=== PATIENT | male | born 1955 | race Caucasian/White ===

== ENCOUNTER 2016-06-30 11:11 | Emergency (ER) | payer MEDICARE, MEDICAID ==
[~2016-06-30] VITALS: Ht 172.7 cm; Wt 123.2 kg
[~2016-06-30 11:11] MED LIST: AMOXICILLIN 8751 TAB PO; ANTIVERT 25MG25 MG PO; ASPIRIN 32325 MG/TAB PO; ASPIRIN 81M81 MG/TA2 PO; ASPIRIN E.C. 8181 MG PO; BACTRIM DS 8001 TAB PO; BETAPACE 120MG120 MG PO; BETAPACE 80MG80 MG; BETAPACE240 MG PO; CEFTIN500 MG PO; CEPHALEXIN500 M1 PO; COUMADIN 2MG2 MG/TAB PO; EFFIENT10 MG PO; ELIQUIS 5MG PO; FERROUS SULFATE65 MG PO; FLOMAX 0.40.4 MG/CAP PO; GLUCOPHAGE500 MG/TAB PO; HYGROTON 2525 MG/TAB; HYGROTON 2525 MG/TAB PO; IMDUR 30MG30 MG/TAB PO; IMDUR 60MG60 MG/TAB PO; LIPITOR 80MG80 MG PO; LOPRESSOR 550 MG/TAB PO; LORTAB 5/500 501 TAB PO; LOVENOX120 MG/0.8 SC; MACROBID 1100 MG/CAP PO; METOPROLOL25 MG PO; MS CONTIN 115 MG/TAB PO; MULTAQ400 MG PO; NITROGLYCERIN0.4 MG SL; NITROQUICK0.4 MG SL; NITROSTAT0.4 MG/TAB SL; NO HOME MEDICATIONS; NORCO 325 MG-51 TAB PO; NORVASC 10MG10 MG PO; NORVASC 5MG5 MG/TAB PO; NORVASC2.5 MG; PACERONE200 MG PO; PEPCID 20MG TAB20 MG PO; PERCOCET 5/321 UDTAB PO; PHENERGAN 25 TA25 MG PO; PHENERGAN25 MG RC; PLAVIX 75MG TAB75 MG PO; PRAVACHOL 40MG40 MG PO; PRINIVIL10 MG PO; PRINIVIL20 MG PO; PROSCAR 5MG5 MG PO; PROTONIX 40MG T40 MG PO; PYRIDIUM 100MG100 MG PO; TOPROL XL 50MG50 MG PO; TOPROL XL100 MG PO; TYLENOL 325MG325 MG PO; ZOCOR 10MG10 MG PO
[2016-06-30 11:14] VITALS: TEMP 97.6
[2016-06-30] MEDS ORDERED: ULTRAM 50MG TAB50 MG PO (11:43)
[2016-06-30] MEDS ORDERED: AMOXICILLIN 50500 MG PO (11:43)
[2016-06-30 11:47] VITALS: BP 126/73; PULSE 79
== END 2016-06-30 11:58 | disposition home or self-care (01) ==
LOC: COL.ER 11:11
DX: K08.89 Other specified disorders of teeth and supporting structures (principal); K03.81 Cracked tooth; I10 Essential (primary) hypertension; F17.210 Nicotine dependence, cigarettes, uncomplicated; Z95.5 Presence of coronary angioplasty implant and graft; I48.91 Unspecified atrial fibrillation; Z79.01 Long term (current) use of anticoagulants

== ENCOUNTER 2016-07-15 16:26 | Emergency (ER) | payer MEDICARE, MEDICAID ==
[~2016-07-15] VITALS: Ht 172.7 cm; Wt 122.3 kg
[~2016-07-15 16:26] MED LIST changes: +AMOXICILLIN 50500 MG PO; +ULTRAM 50MG TAB50 MG PO
[2016-07-15] MEDS ORDERED: PERCOCET 325 MG1 TA2 PO (17:17)
[2016-07-15] MEDS ORDERED: ULTRAM 50MG TAB50 MG PO (17:17)
[2016-07-15 17:25] VITALS: BP 131/71; PULSE 75; TEMP 98.3
== END 2016-07-15 17:25 | disposition home or self-care (01) ==
LOC: COL.ER 16:26
DX: K08.89 Other specified disorders of teeth and supporting structures (principal); I10 Essential (primary) hypertension; Z79.01 Long term (current) use of anticoagulants; F17.210 Nicotine dependence, cigarettes, uncomplicated; K08.409 Partial loss of teeth, unspecified cause, unspecified class

== ENCOUNTER → 2016-09-05 | Outpatient (CLI) | payer MEDICARE, MEDICAID ==
[~2016-09-05] MED LIST changes: +ISOSORBIDE MON120 MG PO; +NICODERM C21 MG/PATC TD; +PERCOCET 325 MG1 TA2 PO
== END ==
LOC: COL.RAD 15:28
DX: E21.2 Other hyperparathyroidism (principal)

== ENCOUNTER 2016-09-12 01:36 | Inpatient (IN) | payer MEDICARE, MEDICAID ==
[~2016-09-12] VITALS: Ht 172.7 cm; Wt 121.6 kg
[2016-09-12] VITALS (636 sets, daily range): BP systolic 97–144; BP diastolic 47–68; PULSE 57–69; TEMP 97.2–98; O2SAT 73–100
[~2016-09-12 01:36] MED LIST changes: -ISOSORBIDE MON120 MG PO; -NICODERM C21 MG/PATC TD
[2016-09-12 02:22] LABS: BASO % 0.4 % (0.0-2.0); EOS # 0.2 (0.0-0.7); EOS % 1.8 % (0-4.0); GRAN # 7.3 (1.4-6.5); GRAN % 67.3 % (42.2-75.2); LYMPH # 2.6 (1.2-3.4); LYMPH % 23.6 % (20.0-51.0); MEAN CELL VOLUME 88 fl (80.0-100.0); MEAN CORPUSCULAR HGB CONC 33 g/dl (33.0-37.0); MEAN PLATELET VOLUME 9.9 fl (7.4-10.4); MONO # 0.7 (0.1-0.6); MONO % 6.5 % (1.7-9.3); PLATELET COUNT 250 K/mm3 (130-400); RED BLOOD COUNT 4.06 M/mm3 (4.20-5.60); REDCELL DISTRIBUTION WIDTH-CV 14.9 % (11.5-14.5); WHITE BLOOD COUNT 10.9 K/mm3 (4.8-10.8)
[2016-09-12 02:23] LABS: HEMATOCRIT 35.7 % (42.0-52.0); HEMOGLOBIN 11.7 g/dl (13.5-18.0); MEAN CORPUSCULAR HEMOGLOBIN 29 pg (27.0-31.0)
[2016-09-12 02:27] LABS: INR 1.2 (0.8-3.0); PROTHROMBIN TIME 13.4 SECONDS (9.7-12.8)
[2016-09-12 02:29] LABS: ALBUMIN 3.8 gm/dL (3.5-5.0); ANION GAP 13 mmol/L (7-16); BILIRUBIN,TOTAL 0.6 mg/dL (0.0-1.0); BLOOD UREA NITROGEN 16 mg/dL (9-20); CALCIUM 10.8 mg/dL (8.4-10.2); CARBON DIOXIDE 25 mmol/L (22-30); CHLORIDE 99 mmol/L (98-107); CREATININE, serum 0.97 mg/dL (0.66-1.25); GLUCOSE 121 mg/dL (74-106); POTASSIUM 3.2 mmol/L (3.4-5.0); SODIUM 138 mmol/L (137-145); TOTAL PROTEIN 6.9 gm/dL (6.4-8.2)
[2016-09-12 02:30] LABS: ALANINE AMINOTRANSFERASE 26 U/L (21-72); ALKALINE PHOSPHATASE 94 U/L (50-136); LIPASE 233 U/L (23-300)
[2016-09-12 02:41] LABS: B-TYPE NATRIURETIC PEPTIDE 119 pg/mL (0-125); TROPONIN-I < 0.012 ng/mL (0.000-0.034)
[2016-09-12 10:11] LABS: PH 5 (5-8); SQUAMOUS EPITHELIAL None Seen /hpf; URINE APPEARANCE Clear; URINE BACTERIA None Seen /hpf; URINE BILIRUBIN Negative (NEGATIVE); URINE BLOOD 1+ (NEGATIVE); URINE COLOR Straw; URINE GLUCOSE Negative (NEGATIVE); URINE KETONE Negative (NEGATIVE); URINE RBC 0-2 /hpf; URINE UROBILINOGEN Negative (NEGATIVE); URINE WBC 0-2 /hpf
[2016-09-13] VITALS (332 sets, daily range): BP systolic 111–142; BP diastolic 67–79; PULSE 58–82; TEMP 97.5–98; O2SAT 78–100
[2016-09-13 05:09] LABS: BASO % 0.4 % (0.0-2.0); EOS # 0.2 (0.0-0.7); EOS % 2.1 % (0-4.0); GRAN # 5.5 (1.4-6.5); LYMPH # 1.7 (1.2-3.4); LYMPH % 21.4 % (20.0-51.0); MEAN CELL VOLUME 90 fl (80.0-100.0); MEAN CORPUSCULAR HGB CONC 32 g/dl (33.0-37.0); MEAN PLATELET VOLUME 10.1 fl (7.4-10.4); MONO # 0.5 (0.1-0.6); MONO % 6.8 % (1.7-9.3); PLATELET COUNT 225 K/mm3 (130-400); RED BLOOD COUNT 3.79 M/mm3 (4.20-5.60); REDCELL DISTRIBUTION WIDTH-CV 15.2 % (11.5-14.5)
[2016-09-13 05:24] LABS: HEMOGLOBIN 10.9 g/dl (13.5-18.0); MEAN CORPUSCULAR HEMOGLOBIN 29 pg (27.0-31.0)
[2016-09-13 05:31] LABS: ADJUSTED CALCIUM 10.8 mg/dL (8.4-10.2); ALBUMIN 3.2 gm/dL (3.5-5.0); BILIRUBIN,TOTAL 0.7 mg/dL (0.0-1.0); CALCIUM 10.2 mg/dL (8.4-10.2); CREATININE, serum 0.56 mg/dL (0.66-1.25); PHOSPHOROUS 2.3 mg/dL (2.5-4.5); POTASSIUM 3.5 mmol/L (3.4-5.0); TOTAL PROTEIN 6.1 gm/dL (6.4-8.2)
[2016-09-13] MEDS ORDERED: NICODERM C21 MG/PATC TD (13:22)
[2016-09-13] MEDS ORDERED: ISOSORBIDE MON120 MG PO (13:24)
== END 2016-09-13 14:00 | disposition home or self-care (01) | DRG 303 ==
LOC: COL.ER 01:36 → ICU 03:50
PROVIDERS: Emergency Medicine; Internal Medicine
PROC: 02HV33Z Insertion of Infusion Device into Superior Vena Cava, Percutaneous Approach (ICD-10-PCS; principal; 2016-09-12)
DX: I25.110 Atherosclerotic heart disease of native coronary artery with unstable angina pectoris (principal); I10 Essential (primary) hypertension; E11.9 Type 2 diabetes mellitus without complications; Z95.5 Presence of coronary angioplasty implant and graft; Z87.891 Personal history of nicotine dependence; E87.6 Hypokalemia; E83.52 Hypercalcemia; I48.0 Paroxysmal atrial fibrillation; Z79.01 Long term (current) use of anticoagulants; F10.10 Alcohol abuse, uncomplicated; Y90.6 Blood alcohol level of 120-199 mg/100 ml
CPT/HCPCS: 99223-AI; 99239; A9502; C1751; J1644; J2543; J2785; J7030; J7050; Q9967

== ENCOUNTER → 2016-09-26 | Outpatient (CLI) | payer MEDICARE, MEDICAID ==
[~2016-09-26] MED LIST changes: +ISOSORBIDE MON120 MG PO; +NICODERM C21 MG/PATC TD
== END ==
LOC: COL.RAD 07:03
DX: R94.6 Abnormal results of thyroid function studies (principal)
CPT/HCPCS: A9503

== ENCOUNTER 2017-10-03 01:52 | Emergency (ER) | payer MEDICARE, MEDICAID ==
[~2017-10-03] VITALS: Ht 175.3 cm; Wt 127.3 kg
[~2017-10-03 01:52] MED LIST changes: +INCRUSE EL62.5 MCG/A IH; +LASIX 80MG TABL80 MG PO; +LIPITOR 40MG TA40 MG PO; +ZESTRIL 10MG10 MG PO; +ZESTRIL2.5 MG PO
[2017-10-03 01:55] VITALS: BP 132/58; TEMP 97.8
[2017-10-03 02:55] VITALS: PULSE 71
== END 2017-10-03 02:50 | disposition home or self-care (01) ==
LOC: COL.ER 01:52
DX: I83.92 Asymptomatic varicose veins of left lower extremity (principal); E11.9 Type 2 diabetes mellitus without complications; I10 Essential (primary) hypertension; I48.91 Unspecified atrial fibrillation; I25.10 Atherosclerotic heart disease of native coronary artery without angina pectoris; F17.210 Nicotine dependence, cigarettes, uncomplicated; Z79.84 Long term (current) use of oral hypoglycemic drugs; Z79.82 Long term (current) use of aspirin

== ENCOUNTER 2018-05-27 23:40 | Emergency (ER) | payer MEDICARE ==
[~2018-05-27] VITALS: Ht 172.7 cm; Wt 124.5 kg
[2018-05-27 23:44] VITALS: BP 132/68; TEMP 97.8
[2018-05-27] MEDS ORDERED: NORCO 325 MG-51 TAB PO (23:56)
[2018-05-27] MEDS ORDERED: AMOXICILLIN 50500 MG PO (23:57)
[2018-05-28 00:57] VITALS: PULSE 71
== END 2018-05-28 00:58 | disposition home or self-care (01) ==
LOC: COL.ER 23:40
DX: K02.9 Dental caries, unspecified (principal); I25.10 Atherosclerotic heart disease of native coronary artery without angina pectoris; Z79.84 Long term (current) use of oral hypoglycemic drugs; Z79.82 Long term (current) use of aspirin; Z79.01 Long term (current) use of anticoagulants
CPT/HCPCS: J1170; J2270

== ENCOUNTER 2018-06-23 11:23 | Emergency (ER) | payer MEDICARE ==
[~2018-06-23] VITALS: Ht 172.7 cm; Wt 121.4 kg
[2018-06-23 11:24] VITALS: TEMP 97.8
[2018-06-23 12:40] VITALS: BP 92/52; PULSE 68
== END 2018-06-23 12:42 | disposition home or self-care (01) ==
LOC: COL.ER 11:23
DX: S86.912A Strain of unspecified muscle(s) and tendon(s) at lower leg level, left leg, initial encounter (principal); I10 Essential (primary) hypertension; E11.9 Type 2 diabetes mellitus without complications; I25.10 Atherosclerotic heart disease of native coronary artery without angina pectoris; Z88.0 Allergy status to penicillin; F17.210 Nicotine dependence, cigarettes, uncomplicated; X50.0XXA Overexertion from strenuous movement or load, initial encounter; Y92.410 Unspecified street and highway as the place of occurrence of the external cause; Z79.82 Long term (current) use of aspirin; Z79.84 Long term (current) use of oral hypoglycemic drugs

== ENCOUNTER 2018-07-25 07:25 | Emergency (ER) | payer MEDICARE ==
[~2018-07-25] VITALS: Ht 350.5 cm; Wt 121.4 kg
[2018-07-25 07:27] VITALS: BP 148/79; TEMP 98
[2018-07-25 08:34] VITALS: PULSE 82
== END 2018-07-25 08:34 | disposition home or self-care (01) ==
LOC: COL.ER 07:25
DX: S80.812A Abrasion, left lower leg, initial encounter (principal); I83.92 Asymptomatic varicose veins of left lower extremity; F17.210 Nicotine dependence, cigarettes, uncomplicated; Z79.82 Long term (current) use of aspirin; Z79.84 Long term (current) use of oral hypoglycemic drugs; Z79.01 Long term (current) use of anticoagulants; Y92.009 Unspecified place in unspecified non-institutional (private) residence as the place of occurrence of the external cause

== ENCOUNTER 2018-08-14 17:45 | Emergency (ER) | payer MEDICARE ==
[~2018-08-14] VITALS: Ht 172.7 cm; Wt 118.6 kg
[2018-08-14 17:48] VITALS: BP 141/62; TEMP 97.7
[2018-08-14 18:40] VITALS: PULSE 70
== END 2018-08-14 18:50 | disposition home or self-care (01) ==
LOC: COL.ER 17:45
DX: I83.892 Varicose veins of left lower extremity with other complications (principal); E11.9 Type 2 diabetes mellitus without complications; I10 Essential (primary) hypertension; E78.5 Hyperlipidemia, unspecified; I25.10 Atherosclerotic heart disease of native coronary artery without angina pectoris; F17.210 Nicotine dependence, cigarettes, uncomplicated; Z79.01 Long term (current) use of anticoagulants; Z79.84 Long term (current) use of oral hypoglycemic drugs; Z79.82 Long term (current) use of aspirin

== ENCOUNTER 2018-08-23 10:50 | Emergency (ER) | payer MEDICARE ==
[2018-08-23 10:55] VITALS: BP 111/53; PULSE 74; TEMP 97.8
== END 2018-08-23 11:10 | disposition home or self-care (01) ==
LOC: COL.ER 10:50
DX: S91.012D Laceration without foreign body, left ankle, subsequent encounter (principal); Z79.82 Long term (current) use of aspirin; Z79.84 Long term (current) use of oral hypoglycemic drugs

== ENCOUNTER 2018-10-18 23:53 | Emergency (ER) | payer MEDICARE ==
[~2018-10-18] VITALS: Ht 172.7 cm; Wt 126.4 kg
[2018-10-18 23:56] VITALS: TEMP 97.9
[2018-10-19 01:15] LABS: BASO % 0.4 % (0.0-2.0); EOS # 0.3 (0.0-0.7); GRAN # 7.6 (1.4-6.5); GRAN % 72.5 % (42.2-75.2); HEMOGLOBIN 11.3 g/dl (13.5-18.0); LYMPH # 1.8 (1.2-3.4); LYMPH % 17.5 % (20.0-51.0); MEAN CELL VOLUME 86 fl (80.0-100.0); MEAN CORPUSCULAR HEMOGLOBIN 26 pg (27.0-31.0); MEAN CORPUSCULAR HGB CONC 31 g/dl (33.0-37.0); MEAN PLATELET VOLUME 9.4 fl (7.4-10.4); MONO # 0.6 (0.1-0.6); MONO % 6.1 % (1.7-9.3); PLATELET COUNT 274 K/mm3 (130-400); RED BLOOD COUNT 4.28 M/mm3 (4.20-5.60); REDCELL DISTRIBUTION WIDTH-CV 18.1 % (11.5-14.5)
[2018-10-19 01:29] LABS: ALANINE AMINOTRANSFERASE 21 U/L (21-72); ALBUMIN 3.7 gm/dL (3.5-5.0); ALKALINE PHOSPHATASE 84 U/L (50-136); ANION GAP 7 mmol/L (7-16); AST,SGOT 20 U/L (15-37); BILIRUBIN,TOTAL 0.3 mg/dL (0.0-1.0); BLOOD UREA NITROGEN 16 mg/dL (9-20); CALCIUM 9.6 mg/dL (8.4-10.2); CARBON DIOXIDE 32 mmol/L (22-30); CHLORIDE 100 mmol/L (98-107); CREATININE, serum 0.61 (0.66-1.25); GLUCOSE 134 mg/dL (74-106); SODIUM 139 mmol/L (137-145); TOTAL PROTEIN 6.8 gm/dL (6.4-8.2)
[2018-10-19 01:42] LABS: TROPONIN-I < 0.012 ng/mL (0.000-0.035)
[2018-10-19 01:57] LABS: INR 1.2 (0.8-3.0); PROTHROMBIN TIME 13.5 SECONDS (9.7-12.8)
[2018-10-19 02:42] VITALS: BP 137/82; PULSE 68
[2018-10-19] MEDS ORDERED: LASIX 20MG TABL20 MG PO (02:43)
[2018-10-19] MEDS ORDERED: K-DUR 10 MEQ T10 MEQ PO (02:43)
== END 2018-10-19 02:53 | disposition home or self-care (01) ==
LOC: COL.ER 23:53
PROVIDERS: Emergency Medicine
DX: R60.9 Edema, unspecified (principal); I25.10 Atherosclerotic heart disease of native coronary artery without angina pectoris; I48.91 Unspecified atrial fibrillation; E78.5 Hyperlipidemia, unspecified; I10 Essential (primary) hypertension; Z95.5 Presence of coronary angioplasty implant and graft; F17.210 Nicotine dependence, cigarettes, uncomplicated; E87.6 Hypokalemia

== ENCOUNTER 2018-11-18 15:26 | Emergency (ER) | payer MEDICARE ==
[~2018-11-18] VITALS: Ht 172.7 cm; Wt 118.6 kg
[~2018-11-18 15:26] MED LIST changes: +K-DUR 10 MEQ T10 MEQ PO; +LASIX 20MG TABL20 MG PO
[2018-11-18 15:37] VITALS: BP 113/55; TEMP 98
[2018-11-18 17:01] LABS: BASO % 0.5 % (0.0-2.0); EOS # 0.3 (0.0-0.7); EOS % 3.9 % (0-4.0); GRAN # 5.7 (1.4-6.5); HEMOGLOBIN 11.4 g/dl (13.5-18.0); LYMPH # 1.8 (1.2-3.4); LYMPH % 20.9 % (20.0-51.0); MEAN CELL VOLUME 86 fl (80.0-100.0); MEAN CORPUSCULAR HEMOGLOBIN 26 pg (27.0-31.0); MEAN CORPUSCULAR HGB CONC 31 g/dl (33.0-37.0); MEAN PLATELET VOLUME 9.5 fl (7.4-10.4); MONO # 0.5 (0.1-0.6); MONO % 6.3 % (1.7-9.3); PLATELET COUNT 260 K/mm3 (130-400); RED BLOOD COUNT 4.33 M/mm3 (4.20-5.60); REDCELL DISTRIBUTION WIDTH-CV 16.8 % (11.5-14.5)
[2018-11-18 17:05] LABS: PROTHROMBIN TIME 11.9 SECONDS (9.7-12.8)
[2018-11-18 17:11] LABS: ALBUMIN 3.7 gm/dL (3.5-5.0); BILIRUBIN,TOTAL 0.3 mg/dL (0.0-1.0); CALCIUM 9.7 mg/dL (8.4-10.2); CREATININE, serum 0.66 (0.66-1.25); POTASSIUM 3.1 mmol/L (3.4-5.0); TOTAL PROTEIN 6.8 gm/dL (6.4-8.2)
[2018-11-18 17:13] LABS: D-DIMER < 200.00 ng/mLDDu (200-230)
[2018-11-18] MEDS ORDERED: ULTRAM 50MG TAB50 MG PO (17:40)
[2018-11-18 17:44] VITALS: PULSE 69
== END 2018-11-18 17:46 | disposition home or self-care (01) ==
LOC: COL.ER 15:26
PROVIDERS: Nurse Practitioner Primary Care
DX: I87.8 Other specified disorders of veins (principal); E11.9 Type 2 diabetes mellitus without complications; E87.6 Hypokalemia; I10 Essential (primary) hypertension; E78.5 Hyperlipidemia, unspecified; I25.10 Atherosclerotic heart disease of native coronary artery without angina pectoris; F17.210 Nicotine dependence, cigarettes, uncomplicated; Z90.49 Acquired absence of other specified parts of digestive tract; Z98.890 Other specified postprocedural states; Z79.84 Long term (current) use of oral hypoglycemic drugs; Z79.82 Long term (current) use of aspirin; Z95.5 Presence of coronary angioplasty implant and graft

== ENCOUNTER 2018-12-03 03:09 | Emergency (ER) | payer MEDICARE ==
[~2018-12-03] VITALS: Ht 172.7 cm; Wt 118.6 kg
[2018-12-03 03:14] VITALS: BP 126/69; PULSE 65; TEMP 97.5
[2018-12-03] MEDS ORDERED: LOTRIMIN15 GM TOP (03:47)
== END 2018-12-03 04:40 | disposition home or self-care (01) ==
LOC: COL.ER 03:09
DX: R21 Rash and other nonspecific skin eruption (principal); I48.91 Unspecified atrial fibrillation; Z79.01 Long term (current) use of anticoagulants; Z79.84 Long term (current) use of oral hypoglycemic drugs

== ENCOUNTER 2019-11-04 14:07 | Inpatient (IN) | payer MEDICARE, MEDICAID ==
[~2019-11-04] VITALS: Ht 172.8 cm; Wt 122.7 kg
[~2019-11-04 14:07] MED LIST changes: +LOTRIMIN15 GM TOP
[2019-11-04] MEDS ORDERED: PRINIVIL10 MG PO (14:23)
[2019-11-04] MEDS ORDERED: NITROSTAT0.4 MG/TAB SL (14:24)
[2019-11-04 14:36] LABS: BASO % 0.2 % (0.0-2.0); EOS # 0.2 (0.0-0.7); EOS % 1.9 % (0-4.0); GRAN # 7.5 (1.4-6.5); GRAN % 75.2 % (42.2-75.2); LYMPH # 1.6 (1.2-3.4); LYMPH % 15.9 % (20.0-51.0); MEAN CELL VOLUME 80 fl (80.0-100.0); MEAN CORPUSCULAR HGB CONC 29 g/dl (33.0-37.0); MEAN PLATELET VOLUME 9.5 fl (7.4-10.4); MONO # 0.6 (0.1-0.6); MONO % 6.4 % (1.7-9.3); PLATELET COUNT 318 K/mm3 (130-400); RED BLOOD COUNT 3.57 M/mm3 (4.20-5.60); REDCELL DISTRIBUTION WIDTH-CV 17.4 % (11.5-14.5)
[2019-11-04 14:37] LABS: ALANINE AMINOTRANSFERASE 18 U/L (4-49); ALKALINE PHOSPHATASE 91 U/L (50-136); ANION GAP 7 mmol/L (7-16); AST,SGOT 37 U/L (15-37); BILIRUBIN,TOTAL 0.5 mg/dL (0.0-1.0); BLOOD UREA NITROGEN 13 mg/dL (9-20); CALCIUM 9.2 mg/dL (8.4-10.2); CARBON DIOXIDE 34 mmol/L (22-30); CHLORIDE 96 mmol/L (98-107); CREATINE KINASE 150 U/L (55-170); CREATININE, serum 0.54 (0.66-1.25); GLUCOSE 146 mg/dL (74-106); LIPASE 179 U/L (23-300); POTASSIUM 3.3 mmol/L (3.4-5.0); SODIUM 136 mmol/L (137-145); TOTAL PROTEIN 7.1 gm/dL (6.4-8.2)
[2019-11-04 14:42] LABS: INR 1.3 (0.8-3.0); PROTHROMBIN TIME 14.9 SECONDS (9.7-12.8)
[2019-11-04 14:50] LABS: TROPONIN-I < 0.012 ng/mL (0.000-0.035)
[2019-11-04 14:54] LABS: HEMATOCRIT 28.5 % (42.0-52.0); HEMOGLOBIN 8.2 g/dl (13.5-18.0); MEAN CORPUSCULAR HEMOGLOBIN 23 pg (27.0-31.0)
[2019-11-04 16:59] VITALS: BP 104/51; PULSE 73; TEMP 98.5
[2019-11-04 19:06] VITALS: BP 111/49; PULSE 81; TEMP 98.3
[2019-11-05] VITALS (19 sets, daily range): BP systolic 97–128; BP diastolic 34–64; PULSE 71–94; TEMP 97.8–98.6
[2019-11-05 07:10] LABS: BASO % 0.4 % (0.0-2.0); EOS # 0.2 (0.0-0.7); EOS % 2.4 % (0-4.0); GRAN # 5.8 (1.4-6.5); GRAN % 75.9 % (42.2-75.2); LYMPH # 1.2 (1.2-3.4); LYMPH % 15.4 % (20.0-51.0); MEAN CELL VOLUME 80 fl (80.0-100.0); MEAN CORPUSCULAR HGB CONC 28 g/dl (33.0-37.0); MEAN PLATELET VOLUME 9.7 fl (7.4-10.4); MONO # 0.4 (0.1-0.6); MONO % 5.5 % (1.7-9.3); PLATELET COUNT 291 K/mm3 (130-400); RED BLOOD COUNT 3.22 M/mm3 (4.20-5.60); REDCELL DISTRIBUTION WIDTH-CV 17.2 % (11.5-14.5)
[2019-11-05 07:13] LABS: HEMATOCRIT 25.8 % (42.0-52.0); HEMOGLOBIN 7.2 g/dl (13.5-18.0); MEAN CORPUSCULAR HEMOGLOBIN 22 pg (27.0-31.0)
[2019-11-05 07:18] LABS: ANION GAP 6 mmol/L (7-16); BLOOD UREA NITROGEN 13 mg/dL (9-20); CALCIUM 8.6 mg/dL (8.4-10.2); CARBON DIOXIDE 35 mmol/L (22-30); CHLORIDE 97 mmol/L (98-107); CREATININE, serum 0.58 (0.66-1.25); GLUCOSE 116 mg/dL (74-106); POTASSIUM 3.6 mmol/L (3.4-5.0); SODIUM 137 mmol/L (137-145)
[2019-11-05 07:30] LABS: TROPONIN-I < 0.012 ng/mL (0.000-0.035)
[2019-11-05 07:45] LABS: IRON,SERUM 18 ug/dL (35-150)
[2019-11-05 07:54] LABS: TOTAL IRON BINDING CAPACITY 370 ug/dL (261-462)
[2019-11-05 18:17] LABS: HEMATOCRIT 30.7 % (42.0-52.0); HEMOGLOBIN 9.1 g/dl (13.5-18.0)
[2019-11-06 00:35] VITALS: BP 122/66; PULSE 84; TEMP 98.5
[2019-11-06 05:03] VITALS: BP 121/60; PULSE 75; TEMP 97.9
[2019-11-06 07:44] VITALS: BP 114/47; PULSE 79; TEMP 98
[2019-11-06 09:15] LABS: BASO % 0.4 % (0.0-2.0); EOS # 0.2 (0.0-0.7); EOS % 2.8 % (0-4.0); GRAN # 5.7 (1.4-6.5); GRAN % 74.9 % (42.2-75.2); LYMPH # 1.2 (1.2-3.4); LYMPH % 15.4 % (20.0-51.0); MEAN CELL VOLUME 80 fl (80.0-100.0); MEAN CORPUSCULAR HGB CONC 30 g/dl (33.0-37.0); MEAN PLATELET VOLUME 9.5 fl (7.4-10.4); MONO # 0.4 (0.1-0.6); MONO % 5.7 % (1.7-9.3); PLATELET COUNT 301 K/mm3 (130-400); RED BLOOD COUNT 3.58 M/mm3 (4.20-5.60); REDCELL DISTRIBUTION WIDTH-CV 17.2 % (11.5-14.5)
[2019-11-06 09:20] LABS: ALBUMIN 3.6 gm/dL (3.5-5.0); BILIRUBIN,TOTAL 0.5 mg/dL (0.0-1.0); CALCIUM 8.7 mg/dL (8.4-10.2); CREATININE, serum 0.46 (0.66-1.25); POTASSIUM 3.5 mmol/L (3.4-5.0); TOTAL PROTEIN 6.7 gm/dL (6.4-8.2)
[2019-11-06 09:25] LABS: HEMATOCRIT 28.6 % (42.0-52.0); HEMOGLOBIN 8.5 g/dl (13.5-18.0); MEAN CORPUSCULAR HEMOGLOBIN 24 pg (27.0-31.0)
[2019-11-06] MEDS ORDERED: FERRO-TIME325 MG PO (11:53)
== END 2019-11-06 13:40 | disposition home or self-care (01) | DRG 811 ==
LOC: COL.ER 14:07 → MEDICAL 15:45
PROVIDERS: Emergency Medicine; Physician Assistant; ADMIT Student in an Organized Health Care Education/Training Program
DX: D50.9 Iron deficiency anemia, unspecified (principal); I50.33 Acute on chronic diastolic (congestive) heart failure; Z68.41 Body mass index [BMI] 40.0-44.9, adult; R07.9 Chest pain, unspecified; I25.10 Atherosclerotic heart disease of native coronary artery without angina pectoris; Z95.5 Presence of coronary angioplasty implant and graft; I25.2 Old myocardial infarction; I11.0 Hypertensive heart disease with heart failure; I48.91 Unspecified atrial fibrillation; E78.5 Hyperlipidemia, unspecified; E11.9 Type 2 diabetes mellitus without complications; J44.9 Chronic obstructive pulmonary disease, unspecified; Z79.84 Long term (current) use of oral hypoglycemic drugs; Z79.82 Long term (current) use of aspirin; F17.210 Nicotine dependence, cigarettes, uncomplicated; Z88.0 Allergy status to penicillin; E66.9 Obesity, unspecified; Z79.01 Long term (current) use of anticoagulants
CPT/HCPCS: 99232-AI; 99233-AI; 99239; A9500; G0378; J1815; J1940; J2270; J2405; J2785; J7030; P9016

== ENCOUNTER 2019-11-11 00:06 | Emergency (ER) | payer MEDICARE ==
[~2019-11-11] VITALS: Ht 172.7 cm; Wt 122.7 kg
[~2019-11-11 00:06] MED LIST changes: +FERRO-TIME325 MG PO
[2019-11-11 00:21] VITALS: TEMP 98.1
[2019-11-11 00:42] LABS: BASO % 0.3 % (0.0-2.0); EOS # 0.3 (0.0-0.7); EOS % 2.5 % (0-4.0); GRAN # 7.4 (1.4-6.5); GRAN % 72.6 % (42.2-75.2); HEMATOCRIT 29.2 % (42.0-52.0); HEMOGLOBIN 8.2 g/dl (13.5-18.0); LYMPH # 1.8 (1.2-3.4); LYMPH % 17.9 % (20.0-51.0); MEAN CELL VOLUME 84 fl (80.0-100.0); MEAN CORPUSCULAR HEMOGLOBIN 24 pg (27.0-31.0); MEAN CORPUSCULAR HGB CONC 28 g/dl (33.0-37.0); MEAN PLATELET VOLUME 9.3 fl (7.4-10.4); MONO # 0.6 (0.1-0.6); MONO % 5.8 % (1.7-9.3); PLATELET COUNT 293 K/mm3 (130-400); RED BLOOD COUNT 3.48 M/mm3 (4.20-5.60); REDCELL DISTRIBUTION WIDTH-CV 19.4 % (11.5-14.5)
[2019-11-11 00:51] LABS: ALANINE AMINOTRANSFERASE 18 U/L (4-49); ALBUMIN 3.8 gm/dL (3.5-5.0); ALKALINE PHOSPHATASE 87 U/L (50-136); ANION GAP 8 mmol/L (7-16); AST,SGOT 26 U/L (15-37); BILIRUBIN,TOTAL 0.6 mg/dL (0.0-1.0); BLOOD UREA NITROGEN 10 mg/dL (9-20); CALCIUM 8.9 mg/dL (8.4-10.2); CARBON DIOXIDE 33 mmol/L (22-30); CHLORIDE 97 mmol/L (98-107); CREATININE, serum 0.57 (0.66-1.25); GLUCOSE 129 mg/dL (74-106); POTASSIUM 3.7 mmol/L (3.4-5.0); SODIUM 137 mmol/L (137-145)
[2019-11-11 01:05] LABS: TROPONIN-I < 0.012 ng/mL (0.000-0.035)
[2019-11-11 02:16] VITALS: BP 100/51; PULSE 88
== END 2019-11-11 02:16 | disposition left against medical advice (07) ==
LOC: COL.ER 00:06
PROVIDERS: Emergency Medicine
DX: R07.89 Other chest pain (principal); D64.9 Anemia, unspecified; J44.9 Chronic obstructive pulmonary disease, unspecified; I25.10 Atherosclerotic heart disease of native coronary artery without angina pectoris; I48.91 Unspecified atrial fibrillation; Z95.5 Presence of coronary angioplasty implant and graft; Z79.01 Long term (current) use of anticoagulants; Z79.84 Long term (current) use of oral hypoglycemic drugs
CPT/HCPCS: J7030

== ENCOUNTER → 2020-01-10 | Outpatient (CLI) | payer MEDICARE | LOC: COL.RAD 07:49 | DX: M25.571 Pain in right ankle and joints of right foot (principal) | CPT/HCPCS: J3301; Q9967 ==

== ENCOUNTER → 2020-02-07 | Outpatient (CLI) | payer MEDICARE, MEDICAID | LOC: COL.RAD 07:55 | DX: M25.572 Pain in left ankle and joints of left foot (principal) | CPT/HCPCS: J3301; Q9967 ==

== ENCOUNTER 2020-03-18 12:57 | Inpatient (IN) | payer MEDICARE, MEDICAID ==
[2020-03-18] VITALS (162 sets, daily range): BP systolic 106–144; BP diastolic 53–76; PULSE 66–80; TEMP 97.7–98.4; O2SAT 88–100
[~2020-03-18] VITALS: Ht 172.7 cm; Wt 118.2 kg
[2020-03-18 13:25] LABS: BASO % 0.4 % (0.0-2.0); EOS # 0.1 (0.0-0.7); EOS % 1.3 % (0-4.0); GRAN % 76.7 % (42.2-75.2); HEMOGLOBIN 10.1 g/dl (13.5-18.0); LYMPH # 1.4 (1.2-3.4); LYMPH % 14.8 % (20.0-51.0); MEAN CELL VOLUME 77 fl (80.0-100.0); MEAN CORPUSCULAR HEMOGLOBIN 22 pg (27.0-31.0); MEAN CORPUSCULAR HGB CONC 29 g/dl (33.0-37.0); MEAN PLATELET VOLUME 9.1 fl (7.4-10.4); MONO # 0.6 (0.1-0.6); MONO % 6.4 % (1.7-9.3); PLATELET COUNT 318 K/mm3 (130-400); RED BLOOD COUNT 4.51 M/mm3 (4.20-5.60); REDCELL DISTRIBUTION WIDTH-CV 19.2 % (11.5-14.5)
[2020-03-18 13:26] LABS: HEMATOCRIT 34.8 % (42.0-52.0)
[2020-03-18 13:36] LABS: INR 1.2 (0.8-3.0)
[2020-03-18 13:39] LABS: ALANINE AMINOTRANSFERASE 15 U/L (4-49); ALBUMIN 4.2 gm/dL (3.5-5.0); ALKALINE PHOSPHATASE 86 U/L (50-136); ANION GAP 7 mmol/L (7-16); AST,SGOT 20 U/L (15-37); BILIRUBIN,TOTAL 0.6 mg/dL (0.0-1.0); BLOOD UREA NITROGEN 10 mg/dL (9-20); CALCIUM 9.4 mg/dL (8.4-10.2); CARBON DIOXIDE 33 mmol/L (22-30); CHLORIDE 97 mmol/L (98-107); CREATININE, serum 0.58 (0.66-1.25); GLUCOSE 169 mg/dL (74-106); LIPASE 193 U/L (23-300); PARTIAL THROMBOPLASTIN TIME 34.9 SECONDS (26.0-37.0); POTASSIUM 3.3 mmol/L (3.4-5.0); SODIUM 137 mmol/L (137-145); TOTAL PROTEIN 7.1 gm/dL (6.4-8.2)
[2020-03-18] MEDS ORDERED: PROAIR HFA0.09 MG/AC IH (13:49)
[2020-03-18 13:56] LABS: TROPONIN-I < 0.012 ng/mL (0.000-0.035)
--- NOTE | 2020-03-18 16:47 | NUR ---
SEE BESSY FOR ALL MEDICATION ADMINISTRATION AND INTRA AND POST SEDATION ASSESSMENT
--- NOTE | 2020-03-18 18:40 | NUR ---
Arrives to ICU 4 via cart and transfer to bed with minimal assistance. Awake and alert, complains of chest pain 12/26. Usman RN with CL states Dr. Dean aware, patient states no worse than before the procedure. Will monitor for changes. TR band to right radial artery, CDI.
--- NOTE | 2020-03-18 19:15 | NUR ---
Bedside report received from SONIA Zayas. Cath site checked; clean, dry and intact with minimal discomfort. Patient reports 7/10 mid sternal chest pain which is described as "pressure". Patient reports this pain is unchanged from pre and post cath. SONIA Zayas reports that certified nurses aide is aware. Currently in Nitro at 10mcg/min. Call light left within reach.
--- NOTE | 2020-03-18 23:00 | NUR ---
Resting quietly in bed, and in no distress. Still reports chest pain which is unchanged from previous assessment. Radial site clean, dry and intact. Will continue to monitor.
[2020-03-19] VITALS (259 sets, daily range): BP systolic 120–146; BP diastolic 49–69; PULSE 72–79; TEMP 98–98.5; O2SAT 67–100
[2020-03-19 05:35] LABS: BASO % 0.2 % (0.0-2.0); EOS # 0.1 (0.0-0.7); EOS % 1.3 % (0-4.0); GRAN # 7.8 (1.4-6.5); GRAN % 79.2 % (42.2-75.2); LYMPH # 1.3 (1.2-3.4); LYMPH % 12.6 % (20.0-51.0); MEAN CELL VOLUME 77 fl (80.0-100.0); MEAN CORPUSCULAR HEMOGLOBIN 23 pg (27.0-31.0); MEAN CORPUSCULAR HGB CONC 29 g/dl (33.0-37.0); MEAN PLATELET VOLUME 9.4 fl (7.4-10.4); MONO # 0.6 (0.1-0.6); MONO % 6.3 % (1.7-9.3); PLATELET COUNT 297 K/mm3 (130-400); RED BLOOD COUNT 4.45 M/mm3 (4.20-5.60)
[2020-03-19 05:40] LABS: HEMATOCRIT 34.4 % (42.0-52.0)
[2020-03-19 05:50] LABS: CALCIUM 8.9 mg/dL (8.4-10.2); CREATININE, serum 0.5 (0.66-1.25); MAGNESIUM 1.5 mg/dL (1.6-2.3); POTASSIUM 3.5 mmol/L (3.4-5.0)
[2020-03-19 06:05] LABS: TROPONIN-I 0.22 ng/mL (0.000-0.035)
--- NOTE | 2020-03-19 06:27 | NUR ---
Oxygen de-saturated to low 80's while sleeping. Placed on 2L NC. 02 immediately back up to mid 90's.
--- NOTE | 2020-03-19 09:24 | NUR ---
Sales And Marketing Agent met with the patient to complete intake. The patient lives in [place] with his life partner/DPOA-HC, Urmila Bond and will return home at discharge. The patient has a walking stick that he uses sometimes. The patient is independent. The patient's PCP is Dr. Galdamez and patient receives medications from [facility] pharmacy. The patient had advanced directives in the EMR. Urmila will provide transportation home. There are no additional needs.
[2020-03-19] MEDS ORDERED: PLAVIX 75MG TAB75 MG PO (10:39)
[2020-03-19] MEDS ORDERED: LIPITOR 80MG80 MG PO (10:40)
[2020-03-19] MEDS ORDERED: ASPIRIN 81M81 MG/TA2 PO (10:42)
--- NOTE | 2020-03-19 10:43 | NUR ---
Casing Soaker attended clinical rounds with the team. The patient is to discharge home today, 03/19. There are no additional needs.
--- NOTE | 2020-03-19 14:05 | NUR ---
DISCHARGE PAPERWORK AND FOLLOW UP APPTS REVIEWED. PT VERBALIZED UNDERSTANDING. HE IS GIVEN RESTRICTIONS FOR HIS RADIAL SITE FROM HEART CATH. HE IS ASSISTED OUT TO ED ENTRANCE WHERE HIS GIRLFRIEND PICKS HIM UP.
--- NOTE | 2020-03-19 14:32 | NUR ---
Initial visit; Patient thanked Forest Economics Professor for looking in on him and keeping him in cooler worker's prayers.
== END 2020-03-19 14:06 | disposition home or self-care (01) | DRG 247 ==
LOC: COL.ER 12:57 → ICU 14:27
PROVIDERS: Emergency Medicine; ADMIT Internal Medicine
PROC: 0271356 Dilation of Coronary Artery, Two Arteries, Bifurcation, with Two Drug-eluting Intraluminal Devices, Percutaneous Approach (ICD-10-PCS; principal; 2020-03-19)
PROC: 02C03ZZ Extirpation of Matter from Coronary Artery, One Artery, Percutaneous Approach (ICD-10-PCS; 2020-03-19)
PROC: B2101ZZ Fluoroscopy of Single Coronary Artery using Low Osmolar Contrast (ICD-10-PCS; 2020-03-19)
PROC: 4A023N8 Measurement of Cardiac Sampling and Pressure, Bilateral, Percutaneous Approach (ICD-10-PCS; 2020-03-19)
PROC: B2111ZZ Fluoroscopy of Multiple Coronary Arteries using Low Osmolar Contrast (ICD-10-PCS; 2020-03-19)
DX: I25.110 Atherosclerotic heart disease of native coronary artery with unstable angina pectoris (principal); E11.9 Type 2 diabetes mellitus without complications; E78.5 Hyperlipidemia, unspecified; I48.91 Unspecified atrial fibrillation; Z79.01 Long term (current) use of anticoagulants; I10 Essential (primary) hypertension; F17.210 Nicotine dependence, cigarettes, uncomplicated; Z87.442 Personal history of urinary calculi; Z79.84 Long term (current) use of oral hypoglycemic drugs
CPT/HCPCS: 99222-AI; 99239; C9600; C9601; J0583; J1644; J2250; J3010; Q9967

== ENCOUNTER 2020-05-16 14:55 | Emergency (ER) | payer MEDICARE, MEDICAID ==
[~2020-05-16] VITALS: Ht 172.7 cm; Wt 130.9 kg
[~2020-05-16 14:55] MED LIST changes: +PROAIR HFA0.09 MG/AC IH
[2020-05-16 15:12] VITALS: TEMP 98.1
[2020-05-16 15:37] LABS: BASO % 0.3 % (0.0-2.0); EOS # 0.4 (0.0-0.7); GRAN # 6.4 (1.4-6.5); GRAN % 71.2 % (42.2-75.2); LYMPH # 1.6 (1.2-3.4); LYMPH % 18.2 % (20.0-51.0); MEAN CELL VOLUME 77 fl (80.0-100.0); MEAN CORPUSCULAR HGB CONC 28 g/dl (33.0-37.0); MEAN PLATELET VOLUME 9.6 fl (7.4-10.4); MONO # 0.5 (0.1-0.6); MONO % 5.9 % (1.7-9.3); PLATELET COUNT 343 K/mm3 (130-400); RED BLOOD COUNT 4.06 M/mm3 (4.20-5.60); REDCELL DISTRIBUTION WIDTH-CV 18.2 % (11.5-14.5)
[2020-05-16 15:38] LABS: HEMATOCRIT 31.2 % (42.0-52.0); HEMOGLOBIN 8.8 g/dl (13.5-18.0); MEAN CORPUSCULAR HEMOGLOBIN 22 pg (27.0-31.0)
[2020-05-16 15:52] LABS: ALANINE AMINOTRANSFERASE 17 U/L (4-49); ALKALINE PHOSPHATASE 102 U/L (50-136); ANION GAP 9 mmol/L (7-16); AST,SGOT 25 U/L (15-37); BILIRUBIN,TOTAL 0.5 mg/dL (0.0-1.0); BLOOD UREA NITROGEN 10 mg/dL (9-20); C-REACTIVE PROTEIN 1.6 mg/dL (0.0-0.9); CALCIUM 8.7 mg/dL (8.4-10.2); CARBON DIOXIDE 34 mmol/L (22-30); CHLORIDE 94 mmol/L (98-107); CREATININE, serum 0.56 (0.66-1.25); GLUCOSE 260 mg/dL (74-106); POTASSIUM 3.4 mmol/L (3.4-5.0); SODIUM 137 mmol/L (137-145); TOTAL PROTEIN 6.9 gm/dL (6.4-8.2)
[2020-05-16 16:01] LABS: TROPONIN-I < 0.012 ng/mL (0.000-0.035)
[2020-05-16] MEDS ORDERED: K-DUR20 MEQ PO (17:22)
[2020-05-16 17:26] VITALS: BP 151/86; PULSE 81
[2020-05-16] MEDS ORDERED: LASIX 40MG TABL40 MG PO (17:36)
== END 2020-05-16 17:30 | disposition home or self-care (01) ==
LOC: COL.ER 14:55
PROVIDERS: Nurse Practitioner
DX: R60.0 Localized edema (principal); J44.9 Chronic obstructive pulmonary disease, unspecified; E66.9 Obesity, unspecified; F17.210 Nicotine dependence, cigarettes, uncomplicated; I48.91 Unspecified atrial fibrillation; Z95.5 Presence of coronary angioplasty implant and graft; Z88.0 Allergy status to penicillin; Z79.02 Long term (current) use of antithrombotics/antiplatelets; Z79.82 Long term (current) use of aspirin; Z79.01 Long term (current) use of anticoagulants; Z79.84 Long term (current) use of oral hypoglycemic drugs
CPT/HCPCS: J1940

== ENCOUNTER 2020-08-15 07:04 | Emergency (ER) | payer MEDICARE, MEDICAID ==
[~2020-08-15] VITALS: Ht 172.7 cm; Wt 118.6 kg
[~2020-08-15 07:04] MED LIST changes: +BETAPACEAF120 PO; +K-DUR20 MEQ PO; +LASIX 40MG TABL40 MG PO
[2020-08-15 07:32] LABS: BASO % 0.2 % (0.0-2.0); EOS # 0.2 (0.0-0.7); EOS % 2.1 % (0-4.0); GRAN # 6.6 (1.4-6.5); GRAN % 75.2 % (42.2-75.2); LYMPH # 1.4 (1.2-3.4); LYMPH % 16.3 % (20.0-51.0); MEAN CELL VOLUME 80 fl (80.0-100.0); MEAN CORPUSCULAR HGB CONC 28 g/dl (33.0-37.0); MEAN PLATELET VOLUME 9.3 fl (7.4-10.4); MONO # 0.5 (0.1-0.6); MONO % 5.9 % (1.7-9.3); PLATELET COUNT 329 K/mm3 (130-400); RED BLOOD COUNT 4.08 M/mm3 (4.20-5.60)
[2020-08-15 07:35] LABS: HEMATOCRIT 32.7 % (42.0-52.0); HEMOGLOBIN 9.3 g/dl (13.5-18.0); MEAN CORPUSCULAR HEMOGLOBIN 23 pg (27.0-31.0)
[2020-08-15 07:38] LABS: INR 1.2 (0.8-3.0); PROTHROMBIN TIME 13.8 SECONDS (9.7-12.8)
[2020-08-15 07:41] LABS: PARTIAL THROMBOPLASTIN TIME 35.8 SECONDS (26.0-37.0)
[2020-08-15 07:42] LABS: ALBUMIN 3.8 gm/dL (3.5-5.0); BILIRUBIN,TOTAL 0.5 mg/dL (0.0-1.0); CALCIUM 8.8 mg/dL (8.4-10.2); CREATININE, serum 0.5 (0.66-1.25); TOTAL PROTEIN 6.9 gm/dL (6.4-8.2)
[2020-08-15 07:48] LABS: POTASSIUM 2.9 mmol/L (3.4-5.0)
[2020-08-15 07:56] LABS: TROPONIN-I 0.052 ng/mL (0.000-0.035)
[2020-08-15 09:30] VITALS: TEMP 98.1
[2020-08-15 10:10] VITALS: BP 102/72; PULSE 78
[2020-12-15] MEDS ORDERED: LASIX 20MG TABL20 MG PO (14:29)
[2020-12-15] MEDS ORDERED: ULTRAM 50MG TAB50 MG PO (14:30)
[2020-12-15] MEDS ORDERED: PLAVIX 75MG TAB75 MG PO (14:30)
== END 2020-08-15 10:15 | disposition short-term general hospital (02) ==
LOC: COL.ER 07:04
PROVIDERS: Family Medicine
DX: R07.89 Other chest pain (principal); D64.9 Anemia, unspecified; R06.02 Shortness of breath; I25.10 Atherosclerotic heart disease of native coronary artery without angina pectoris; I48.91 Unspecified atrial fibrillation; I10 Essential (primary) hypertension; E11.9 Type 2 diabetes mellitus without complications; Z87.442 Personal history of urinary calculi; Z95.9 Presence of cardiac and vascular implant and graft, unspecified; Z79.02 Long term (current) use of antithrombotics/antiplatelets; Z79.82 Long term (current) use of aspirin; Z79.84 Long term (current) use of oral hypoglycemic drugs; Z79.01 Long term (current) use of anticoagulants; Z20.822 Contact with and (suspected) exposure to COVID-19
CPT/HCPCS: J3480

== ENCOUNTER 2020-08-24 04:31 | Emergency (ER) | payer MEDICARE, MEDICAID ==
[2020-08-24] VITALS (10 sets, daily range): BP systolic 102–136; BP diastolic 56–86; PULSE 64–76; TEMP 98–98.6
[~2020-08-24] VITALS: Ht 172.7 cm; Wt 123.2 kg
[2020-08-24 05:00] LABS: BASO % 0.4 % (0.0-2.0); EOS # 0.2 (0.0-0.7); EOS % 2.5 % (0-4.0); LYMPH # 1.6 (1.2-3.4); LYMPH % 19.4 % (20.0-51.0); MEAN CELL VOLUME 78 fl (80.0-100.0); MEAN CORPUSCULAR HGB CONC 30 g/dl (33.0-37.0); MEAN PLATELET VOLUME 9.1 fl (7.4-10.4); MONO # 0.6 (0.1-0.6); MONO % 6.5 % (1.7-9.3); PLATELET COUNT 282 K/mm3 (130-400); RED BLOOD COUNT 3.86 M/mm3 (4.20-5.60); REDCELL DISTRIBUTION WIDTH-CV 19.7 % (11.5-14.5)
[2020-08-24 05:02] LABS: HEMATOCRIT 30.2 % (42.0-52.0); HEMOGLOBIN 8.9 g/dl (13.5-18.0); MEAN CORPUSCULAR HEMOGLOBIN 23 pg (27.0-31.0)
[2020-08-24 05:05] LABS: INR 1.3 (0.8-3.0); PROTHROMBIN TIME 14.9 SECONDS (9.7-12.8)
[2020-08-24 05:09] LABS: BILIRUBIN,TOTAL 0.6 mg/dL (0.0-1.0); CALCIUM 8.9 mg/dL (8.4-10.2); CREATININE, serum 0.57 (0.66-1.25); POTASSIUM 3.4 mmol/L (3.4-5.0)
[2020-08-24 05:21] LABS: TROPONIN-I 0.012 ng/mL (0.000-0.035)
[2020-08-24] MEDS ORDERED: NORVASC 5MG5 MG/TAB PO (14:29)
[2020-12-15] MEDS ORDERED: LASIX 20MG TABL20 MG PO (14:29)
[2020-12-15] MEDS ORDERED: ULTRAM 50MG TAB50 MG PO (14:30)
[2020-12-15] MEDS ORDERED: PLAVIX 75MG TAB75 MG PO (14:30)
== END 2020-08-24 16:00 | disposition home or self-care (01) ==
LOC: COL.ER 04:31
PROVIDERS: Emergency Medicine
DX: R07.9 Chest pain, unspecified (principal); R06.02 Shortness of breath; I25.10 Atherosclerotic heart disease of native coronary artery without angina pectoris; I48.91 Unspecified atrial fibrillation; I10 Essential (primary) hypertension; E78.5 Hyperlipidemia, unspecified; E11.9 Type 2 diabetes mellitus without complications; Z87.442 Personal history of urinary calculi; Z79.01 Long term (current) use of anticoagulants; Z79.02 Long term (current) use of antithrombotics/antiplatelets; Z88.0 Allergy status to penicillin; Z79.82 Long term (current) use of aspirin; Z79.84 Long term (current) use of oral hypoglycemic drugs; Z20.822 Contact with and (suspected) exposure to COVID-19
CPT/HCPCS: C1764; J2250; J2270; J3010; J7030; P9016

== ENCOUNTER 2020-09-24 00:30 | Inpatient (IN) | payer MEDICARE, MEDICAID ==
[2020-09-24] VITALS (74 sets, daily range): BP systolic 105–143; BP diastolic 46–83; PULSE 62–85; TEMP 97–99; O2SAT 93–100
[~2020-09-24] VITALS: Ht 172.7 cm; Wt 122.7 kg
[2020-09-24] MEDS ORDERED: TOPROL XL 50MG50 MG PO (04:52)
[2020-09-24] MEDS ORDERED: B-121000 MCG PO (04:53)
[2020-09-24] MEDS ORDERED: FERRO-TIME325 MG PO (04:53)
[2020-09-24] MEDS ORDERED: RANEXA 500MG T500 MG PO (05:01)
[2020-09-24] MEDS ORDERED: LASIX 20MG TABL20 MG PO (05:01)
[2020-09-24 05:46] LABS: ALBUMIN 3.7 gm/dL (3.5-5.0); BILIRUBIN,TOTAL 0.3 mg/dL (0.0-1.0); CALCIUM 8.4 mg/dL (8.4-10.2); COLLECTION METHOD CLEAN CATCH; CREATININE, serum 0.51 (0.66-1.25); POTASSIUM 3.6 mmol/L (3.4-5.0); TROPONIN-I 0.115 ng/mL (0.000-0.035)
[2020-09-24 05:47] LABS: BASO % 0.4 % (0.0-2.0); EOS % 2.8 % (0-4.0); GRAN % 67.4 % (42.2-75.2); HEMATOCRIT 29.4 % (42.0-52.0); HEMOGLOBIN 8.6 g/dl (13.5-18.0); LYMPH % 20.2 % (20.0-51.0); MEAN CELL VOLUME 83 fl (80.0-100.0); MEAN CORPUSCULAR HEMOGLOBIN 24 pg (27.0-31.0); MEAN CORPUSCULAR HGB CONC 29 g/dl (33.0-37.0); MONO % 8.5 % (1.7-9.3); PLATELET COUNT 319 K/mm3 (130-400); RED BLOOD COUNT 3.54 M/mm3 (4.20-5.60); REDCELL DISTRIBUTION WIDTH-CV 19.1 % (11.5-14.5)
[2020-09-24 05:48] LABS: EOS # 0.2 (0.0-0.7); GRAN # 5.1 (1.4-6.5); LYMPH # 1.5 (1.2-3.4); MONO # 0.6 (0.1-0.6); PH 7 (5-8); SQUAMOUS EPITHELIAL None Seen /hpf; URINE APPEARANCE Clear; URINE BILIRUBIN Negative (NEGATIVE); URINE BLOOD Negative (NEGATIVE); URINE COLOR Yellow; URINE GLUCOSE Negative (NEGATIVE); URINE KETONE Negative (NEGATIVE); URINE LEUKOCYTE ESTERASE Negative (NEGATIVE); URINE NITRATE Negative (NEGATIVE); URINE PROTEIN(semi-quant) Negative (NEGATIVE); URINE RBC 0-2 /hpf; URINE UROBILINOGEN Negative (NEGATIVE); URINE WBC 0-2 /hpf
[2020-09-24 05:49] LABS: URINE BACTERIA None Seen /hpf
[2020-09-24 05:58] LABS: CHOLESTEROL RISK RATIO 4.6; INR 1.1 (0.8-3.0); MAGNESIUM 1.7 mg/dL (1.6-2.3); PROTHROMBIN TIME 11.8 SECONDS (9.7-12.8)
[2020-09-24 06:00] LABS: PARTIAL THROMBOPLASTIN TIME 31.5 SECONDS (26.0-37.0)
[2020-09-24 06:14] LABS: TROPONIN-I 0.124 ng/mL (0.000-0.035)
--- NOTE | 2020-09-24 08:20 | NUR ---
PT ADMITTED FROM ED WITH CHF AND CP. PT'S VSS. PT HAS HEPARIN DRIP RUNNING AT 1000 UNITS/HR. PT IS AXOX4. PT IS ON RA. PT ORIENTED TO ROOM AND FLOOR. PT INSTRUCTED NOT TO GET OUT OF BED WITHOUT ASSISTANCE. PT'S BG CHECK. NEW IV STARTED IN LEFT ARM. PT NPO FOR POSSIBLE PROCEDURE. BEDSIDE AND PLAN FOR RENAL CASE MANAGER. CARDIAC MEDS GIVEN WITH SIPS PER . DOIN SCOTT FROM CATH BEDSIDE TO PREP PT. PT LEFT FOR RENAL CASE MANAGER AT 0850.
--- NOTE | 2020-09-24 12:03 | NUR ---
Plan to return home with life partner Urmila Bond ([facility]) . SW met with patient about care. Patient reports that he uses [facility] for medications and obtains them without difficulty. Patient reports that his PCP is Dr. Galdamez and other specialist are Dr. Dean and Dr. Almanzar. Patient reports that he has transportation but has had recent concerns with breathing difficulty while walking. Staffed with nurse about oxi-test. Patient denies having any DME supports and denies having any [facility] supports and reports that his partner supports his care needs. Educated on services available to him. Will continue to follow.
--- NOTE | 2020-09-24 14:00 | NUR ---
PT WANTING TO GO HOME. PT STATES THAT WAS OK WITH DISCARGE IF HIS ECHO WAS OK AND WAS OK WITH DISCHARGE. I CALLED AND SPOKE WITH CLAUDIA NORTON NURSE AND UPDATED ON ABOVE. SHE STATES SHE WILL DISCUSS WITH . CLAUDIA RETURNED CALL AND STATES RECOMMENDS STAYING OVER NIGHT AND CONTINUING WITH NEW MEDICATIONS AND DIURESIS. PT NOTIFIED. PT INSTISTING ON LEAVING AMA. NOTIFIED AND CAME TO DISCUSS WITH PT. PT STILL REQUESTING TO LEAVE. PT SIGNED AMA FORM. RIGHT RADIAL SITE C/D/I. PT REMINEDED NOT TO USE RIGHT ARM AND SPLINT LEFT ON. IV'S DCD. TELE DC'D. PT WHEELED OUT TO HIS VEHICLE.
[2020-09-24] MEDS ORDERED: RANEXA1000 MG PO (14:21)
[2020-09-24] MEDS ORDERED: NORVASC 10MG10 MG PO (14:21)
[2020-12-15] MEDS ORDERED: LASIX 20MG TABL20 MG PO (14:29)
[2020-12-15] MEDS ORDERED: PLAVIX 75MG TAB75 MG PO (14:30)
[2020-12-15] MEDS ORDERED: ULTRAM 50MG TAB50 MG PO (14:30)
== END 2020-09-24 14:30 | disposition left against medical advice (07) | DRG 280 ==
LOC: COL.ER 00:30 → ICU 06:34 → COL.ER 08:10 → ICU 09:28
PROVIDERS: Emergency Medicine; Nurse Practitioner Family; ADMIT Hospitalist
PROC: 4A023N7 Measurement of Cardiac Sampling and Pressure, Left Heart, Percutaneous Approach (ICD-10-PCS; principal; 2020-09-24)
PROC: B2111ZZ Fluoroscopy of Multiple Coronary Arteries using Low Osmolar Contrast (ICD-10-PCS; 2020-09-24)
DX: I21.4 Non-ST elevation (NSTEMI) myocardial infarction (principal); I50.33 Acute on chronic diastolic (congestive) heart failure; I48.92 Unspecified atrial flutter; Z68.41 Body mass index [BMI] 40.0-44.9, adult; I25.110 Atherosclerotic heart disease of native coronary artery with unstable angina pectoris; I11.0 Hypertensive heart disease with heart failure; J44.9 Chronic obstructive pulmonary disease, unspecified; I48.91 Unspecified atrial fibrillation; Z20.822 Contact with and (suspected) exposure to COVID-19; I08.1 Rheumatic disorders of both mitral and tricuspid valves; E11.9 Type 2 diabetes mellitus without complications; D64.9 Anemia, unspecified; E87.6 Hypokalemia; E66.9 Obesity, unspecified; I25.2 Old myocardial infarction; E78.5 Hyperlipidemia, unspecified; Z79.84 Long term (current) use of oral hypoglycemic drugs; Z79.82 Long term (current) use of aspirin; Z95.818 Presence of other cardiac implants and grafts; Z95.5 Presence of coronary angioplasty implant and graft; Z87.891 Personal history of nicotine dependence; Z88.0 Allergy status to penicillin
CPT/HCPCS: 99222-AI; 99239; C1769; J1644; J1940; J2250; J2270; J3010; J3480; J7030

== ENCOUNTER → 2020-10-13 | Outpatient (CLI) | payer MEDICARE, MEDICAID ==
[~2020-10-13] MED LIST changes: +00186-0370-20 IH; +B-121000 MCG PO; +DEMADEX100 MG; +DEMADEX100 MG PO; +FERROUSAL325 MG PO; +GLUCOPHAGE XR500 M1 PO; +K-TAB10 PO; +OMNICEF 300MG300 MG PO; +PROVENTIL0.09 MG/A1 IH; +RANEXA 500MG T500 MG PO; +RANEXA1000 MG PO; +TRIAMCINOLONE A15 G3 TP; +ZITHROMAX Z PA250 MG PO
== END ==
LOC: COL.CAR → ZCOL.LAB 12:00 → EDSTATUS 11-05 16:05
DX: Z20.822 Contact with and (suspected) exposure to COVID-19 (principal)

== ENCOUNTER 2020-12-08 03:20 | Emergency (ER) | payer MEDICARE, MEDICAID ==
[~2020-12-08] VITALS: Ht 172.7 cm; Wt 104.5 kg
[~2020-12-08 03:20] MED LIST changes: -00186-0370-20 IH; -DEMADEX100 MG; -DEMADEX100 MG PO; -FERROUSAL325 MG PO; -GLUCOPHAGE XR500 M1 PO; -K-TAB10 PO; -OMNICEF 300MG300 MG PO; -PROVENTIL0.09 MG/A1 IH; -TRIAMCINOLONE A15 G3 TP; -ZITHROMAX Z PA250 MG PO
[2020-12-08 03:22] VITALS: TEMP 98.3
[2020-12-08 04:08] LABS: BASO % 0.3 % (0.0-2.0); EOS # 0.2 (0.0-0.7); EOS % 1.9 % (0-4.0); GRAN # 6.7 (1.4-6.5); GRAN % 72.5 % (42.2-75.2); LYMPH # 1.7 (1.2-3.4); LYMPH % 17.9 % (20.0-51.0); MEAN CELL VOLUME 78 fl (80.0-100.0); MEAN CORPUSCULAR HGB CONC 29 g/dl (33.0-37.0); MEAN PLATELET VOLUME 9.4 fl (7.4-10.4); MONO # 0.7 (0.1-0.6); MONO % 7.1 % (1.7-9.3); PLATELET COUNT 345 K/mm3 (130-400); RED BLOOD COUNT 4.02 M/mm3 (4.20-5.60); REDCELL DISTRIBUTION WIDTH-CV 17.3 % (11.5-14.5)
[2020-12-08 04:10] LABS: PROTHROMBIN TIME 11.1 SECONDS (9.7-12.8)
[2020-12-08 04:16] LABS: ALANINE AMINOTRANSFERASE 11 U/L (4-49); ALBUMIN 3.7 gm/dL (3.5-5.0); ALKALINE PHOSPHATASE 67 U/L (50-136); ANION GAP 7 mmol/L (7-16); AST,SGOT 45 U/L (15-37); BILIRUBIN,TOTAL 0.4 mg/dL (0.0-1.0); BLOOD UREA NITROGEN 14 mg/dL (9-20); CALCIUM 8.9 mg/dL (8.4-10.2); CARBON DIOXIDE 32 mmol/L (22-30); CHLORIDE 98 mmol/L (98-107); GLUCOSE 113 mg/dL (74-106); POTASSIUM 3.1 mmol/L (3.4-5.0); SODIUM 138 mmol/L (137-145); TOTAL PROTEIN 6.9 gm/dL (6.4-8.2)
[2020-12-08 04:20] LABS: HEMATOCRIT 31.4 % (42.0-52.0); HEMOGLOBIN 9.2 g/dl (13.5-18.0); MEAN CORPUSCULAR HEMOGLOBIN 23 pg (27.0-31.0)
[2020-12-08 04:29] LABS: TROPONIN-I < 0.012 ng/mL (0.000-0.035)
[2020-12-08 04:40] LABS: CREATINE KINASE 66 U/L (55-170); MAGNESIUM 1.3 mg/dL (1.6-2.3)
[2020-12-08] MEDS ORDERED: NITROSTAT0.4 MG/TAB SL (05:52)
[2020-12-08 07:38] VITALS: BP 128/77; PULSE 65
[2020-12-15] MEDS ORDERED: LASIX 20MG TABL20 MG PO (14:29)
[2020-12-15] MEDS ORDERED: ULTRAM 50MG TAB50 MG PO (14:30)
[2020-12-15] MEDS ORDERED: PLAVIX 75MG TAB75 MG PO (14:30)
== END 2020-12-08 07:38 | disposition home or self-care (01) ==
LOC: COL.ER 03:20
PROVIDERS: Emergency Medicine
DX: I20.9 Angina pectoris, unspecified (principal); I25.10 Atherosclerotic heart disease of native coronary artery without angina pectoris; I10 Essential (primary) hypertension; E78.5 Hyperlipidemia, unspecified; I25.2 Old myocardial infarction; Z95.9 Presence of cardiac and vascular implant and graft, unspecified; Z95.818 Presence of other cardiac implants and grafts; Z79.82 Long term (current) use of aspirin; Z79.899 Other long term (current) drug therapy
CPT/HCPCS: J3475

== ENCOUNTER 2020-12-19 13:27 | Inpatient (IN) | payer MEDICARE, MEDICAID ==
[~2020-12-19] VITALS: Ht 172.7 cm; Wt 118.2 kg
[2020-12-19 13:56] LABS: BASO % 0.4 % (0.0-2.0); EOS # 0.1 (0.0-0.7); EOS % 1.4 % (0-4.0); GRAN # 6.7 (1.4-6.5); GRAN % 80.2 % (42.2-75.2); LYMPH % 11.7 % (20.0-51.0); MEAN CELL VOLUME 78 fl (80.0-100.0); MEAN CORPUSCULAR HGB CONC 30 g/dl (33.0-37.0); MEAN PLATELET VOLUME 9.3 fl (7.4-10.4); MONO # 0.5 (0.1-0.6); MONO % 5.8 % (1.7-9.3); PLATELET COUNT 322 K/mm3 (130-400); RED BLOOD COUNT 4.16 M/mm3 (4.20-5.60); REDCELL DISTRIBUTION WIDTH-CV 17.9 % (11.5-14.5)
[2020-12-19 13:57] LABS: HEMATOCRIT 32.6 % (42.0-52.0); HEMOGLOBIN 9.7 g/dl (13.5-18.0); MEAN CORPUSCULAR HEMOGLOBIN 23 pg (27.0-31.0)
[2020-12-19 13:59] LABS: INR 1.1 (0.8-3.0); PROTHROMBIN TIME 12.2 SECONDS (9.7-12.8)
[2020-12-19 14:00] LABS: ALBUMIN 3.7 gm/dL (3.5-5.0); BILIRUBIN,TOTAL 0.4 mg/dL (0.0-1.0); CALCIUM 9.1 mg/dL (8.4-10.2); CREATININE, serum 0.59 (0.66-1.25); POTASSIUM 3.1 mmol/L (3.4-5.0); TOTAL PROTEIN 6.9 gm/dL (6.4-8.2)
[2020-12-19 14:02] LABS: PARTIAL THROMBOPLASTIN TIME 29.9 SECONDS (26.0-37.0)
[2020-12-19 14:39] LABS: TROPONIN-I 0.062 ng/mL (0.000-0.035)
[2020-12-19 19:18] VITALS: BP 150/77; PULSE 77; TEMP 98.2
--- NOTE | 2020-12-19 19:34 | NUR ---
Received report from Nixon. Patient arrived in the floor from ED at 1845H. He is alert and oriented. He denies chest pain right now. He has IV on left hand with heparin drip at 10ml/hr. He is on room air. Assesment and medrec reviewed and completed. He just finished eating his dinner.
--- NOTE | 2020-12-19 20:17 | NUR ---
Patient just had his lab draw for Troponin. After this he called saying he is having a chest pain. He said he just came back from the restroom and after lying in bed, he felt chest pain with score of 6/10. Called Sugar IGNACIO and she ordered to give Morphine and do an EKG.
[2020-12-19 20:43] VITALS: BP 127/59; PULSE 79; TEMP 98.3
--- NOTE | 2020-12-19 20:55 | NUR ---
Checked on patient and he said that he doesn't have chest pain anymore. Informed Sugar IGNACIO that patient's pain was relieved with Morphine. Lab called as well relaying his Troponin went up to 2.300. Sugar said to call Dr. Red and see what she wants to do. Dr. Red said the patient needs to be transferred to [facility] as he needs a heart cath soon. Called Sugar and relayed what Dr. Red said.
--- NOTE | 2020-12-19 23:12 | NUR ---
Report given to the nurse in [facility].
[2020-12-19 23:19] VITALS: BP 116/49; PULSE 61; TEMP 98.3
--- NOTE | 2020-12-20 00:05 | NUR ---
Placed Nitro ointment on his left chest. He denies pain right now. 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
== END 2020-12-20 00:05 | disposition critical access hospital (66) | DRG 281 ==
LOC: COL.ER 13:27 → MEDICAL 16:13 → COL.ER 16:13 → MEDICAL 16:13
PROVIDERS: Family Medicine; ADMIT Internal Medicine
DX: I21.4 Non-ST elevation (NSTEMI) myocardial infarction (principal); I50.30 Unspecified diastolic (congestive) heart failure; I11.0 Hypertensive heart disease with heart failure; E88.81 Metabolic syndrome and other insulin resistance; J44.9 Chronic obstructive pulmonary disease, unspecified; E78.5 Hyperlipidemia, unspecified; I48.91 Unspecified atrial fibrillation; I25.110 Atherosclerotic heart disease of native coronary artery with unstable angina pectoris; Z95.818 Presence of other cardiac implants and grafts; Z79.84 Long term (current) use of oral hypoglycemic drugs; Z79.82 Long term (current) use of aspirin
CPT/HCPCS: OP; 99223-AI; 99239; J1644; J2270

== ENCOUNTER 2021-01-06 15:00 | Outpatient (RCR) | payer MEDICARE, MEDICAID ==
[2020-12-15 14:16] VITALS: BP 119/74; PULSE 68; TEMP 98.5
--- NOTE | 2020-12-15 15:15 | NUR ---
Pt remained in dept for 35 mins following initial infusion of venofer. No s/s of reaction. INT DC'd with catheter intact. Pt ambulates out from dept with steady gait.
[~2021-01-06] VITALS: Ht 172.7 cm; Wt 122.7 kg
[2021-01-06 16:52] VITALS: BP 123/61; PULSE 71; TEMP 98.8
[2021-01-06] MEDS ORDERED: LASIX 20MG TABL20 MG PO (17:00)
[2021-01-06] MEDS ORDERED: K-DUR 10 MEQ T10 MEQ PO (17:00)
== END 2021-01-06 17:43 | disposition home or self-care (01) ==
LOC: EUO 15:00
DX: D50.9 Iron deficiency anemia, unspecified (principal); Z79.899 Other long term (current) drug therapy
CPT/HCPCS: J1756

== ENCOUNTER 2021-01-22 06:50 | Outpatient (CLI) | payer MEDICARE, MEDICAID ==
[~2021-01-22] VITALS: Ht 172.8 cm; Wt 123.9 kg
[2021-01-22 08:12] VITALS: BP 152/85; PULSE 61; TEMP 97.1
[2021-01-22] MEDS ORDERED: RANEXA 500MG T500 MG PO (08:26)
[2021-01-22] MEDS ORDERED: 00186-0370-20 IH (08:26)
[2021-01-22] MEDS ORDERED: TRIAMCINOLONE A15 G3 TP (08:27)
[2021-01-22 08:30] LABS: CALCIUM 8.5 mg/dL (8.4-10.2); CREATININE, serum 0.53 (0.66-1.25); HEMOGLOBIN 10.3 g/dl (13.5-18.0); MEAN CELL VOLUME 84 fl (80.0-100.0); MEAN CORPUSCULAR HEMOGLOBIN 25 pg (27.0-31.0); MEAN CORPUSCULAR HGB CONC 29 g/dl (33.0-37.0); MEAN PLATELET VOLUME 9.7 fl (7.4-10.4); PLATELET COUNT 276 K/mm3 (130-400); POTASSIUM 4.1 mmol/L (3.4-5.0); RED BLOOD COUNT 4.17 M/mm3 (4.20-5.60); REDCELL DISTRIBUTION WIDTH-CV 20.3 % (11.5-14.5)
[2021-01-22 08:31] LABS: HEMATOCRIT 35.1 % (42.0-52.0)
[2021-01-22 09:30] VITALS: BP 140/79; PULSE 64
[2021-01-22 09:45] VITALS: BP 134/64; PULSE 66
[2021-01-22 10:00] VITALS: BP 136/78; PULSE 64
[2021-01-22 10:15] VITALS: BP 126/91; PULSE 65
--- NOTE | 2021-01-22 10:25 | NUR ---
DC instructions reviewed with pt, he expresses understanding. He has tolerated PO without issue. Steady on feet in room. He is assisted out to truck, friend will be driving him home with belongings.
== END 2021-01-22 10:26 | disposition home or self-care (01) ==
LOC: COL.RAD 06:50
PROVIDERS: Internal Medicine Cardiovascular Disease
DX: I48.0 Paroxysmal atrial fibrillation (principal); Z79.899 Other long term (current) drug therapy
CPT/HCPCS: J2704

== ENCOUNTER 2021-02-12 15:11 | Outpatient (RCR) | payer MEDICARE, MEDICAID ==
[~2021-02-12 15:11] MED LIST changes: +00186-0370-20 IH; +TRIAMCINOLONE A15 G3 TP
[2021-02-25] MEDS ORDERED: ZITHROMAX Z PA250 MG PO (13:32)
[2021-02-25] MEDS ORDERED: OMNICEF 300MG300 MG PO (13:32)
[2021-03-24] MEDS ORDERED: PLAVIX 75MG TAB75 MG PO (07:29)
[2021-03-24] MEDS ORDERED: B-121000 MCG PO (07:30)
[2021-03-24] MEDS ORDERED: FERROUSAL325 MG PO (07:30)
[2021-03-24] MEDS ORDERED: PRINIVIL10 MG PO (07:31)
[2021-03-24] MEDS ORDERED: ISOSORBIDE MON120 MG PO (07:31)
[2021-03-24] MEDS ORDERED: NITROSTAT0.4 MG/TAB SL (07:32)
[2021-03-24] MEDS ORDERED: TOPROL XL 50MG50 MG PO (07:32)
[2021-03-24] MEDS ORDERED: LIPITOR 80MG80 MG PO (07:33)
[2021-03-24] MEDS ORDERED: PROVENTIL0.09 MG/A1 IH (07:33)
[2021-03-24] MEDS ORDERED: DEMADEX100 MG (07:34)
[2021-03-24] MEDS ORDERED: 00186-0370-20 IH (07:34)
[2021-03-24] MEDS ORDERED: DEMADEX100 MG PO (07:35)
[2021-03-24] MEDS ORDERED: K-TAB10 PO (07:35)
[2021-03-24] MEDS ORDERED: RANEXA 500MG T500 MG PO (07:36)
[2021-03-24] MEDS ORDERED: BETAPACE 120MG120 MG PO (07:37)
[2021-03-24] MEDS ORDERED: NORVASC 10MG10 MG PO (07:37)
[2021-03-24] MEDS ORDERED: GLUCOPHAGE XR500 M1 PO (07:38)
[2021-03-24] MEDS ORDERED: ULTRAM 50MG TAB50 MG PO (07:38)
== END 2021-03-30 | disposition home or self-care (01) ==
LOC: COL.CR
DX: Z48.812 Encounter for surgical aftercare following surgery on the circulatory system (principal); Z98.61 Coronary angioplasty status; I25.2 Old myocardial infarction
CPT/HCPCS: J1756

== ENCOUNTER 2021-02-25 10:49 | Emergency (ER) | payer MEDICARE, MEDICAID ==
[~2021-02-25] VITALS: Ht 172.7 cm; Wt 123.2 kg
[2021-02-25 10:50] VITALS: TEMP 98.2
[2021-02-25 12:13] LABS: BASO % 0.4 % (0.0-2.0); EOS # 0.1 (0.0-0.7); EOS % 1.4 % (0-4.0); GRAN # 6.5 (1.4-6.5); GRAN % 76.7 % (42.2-75.2); HEMOGLOBIN 11.2 g/dl (13.5-18.0); LYMPH # 1.2 (1.2-3.4); LYMPH % 14.2 % (20.0-51.0); MEAN CELL VOLUME 86 fl (80.0-100.0); MEAN CORPUSCULAR HEMOGLOBIN 26 pg (27.0-31.0); MEAN CORPUSCULAR HGB CONC 30 g/dl (33.0-37.0); MEAN PLATELET VOLUME 9.9 fl (7.4-10.4); MONO # 0.6 (0.1-0.6); MONO % 6.6 % (1.7-9.3); PLATELET COUNT 277 K/mm3 (130-400); REDCELL DISTRIBUTION WIDTH-CV 18.7 % (11.5-14.5)
[2021-02-25 12:14] LABS: HEMATOCRIT 36.9 % (42.0-52.0)
[2021-02-25 12:23] LABS: ALANINE AMINOTRANSFERASE 19 U/L (4-49); ALKALINE PHOSPHATASE 81 U/L (50-136); ANION GAP 7 mmol/L (7-16); AST,SGOT 21 U/L (15-37); BILIRUBIN,TOTAL 0.6 mg/dL (0.0-1.0); BLOOD UREA NITROGEN 12 mg/dL (9-20); CALCIUM 9.1 mg/dL (8.4-10.2); CARBON DIOXIDE 29 mmol/L (22-30); CHLORIDE 104 mmol/L (98-107); CREATININE, serum 0.53 (0.66-1.25); GLUCOSE 164 mg/dL (74-106); SODIUM 140 mmol/L (137-145); TOTAL PROTEIN 7.1 gm/dL (6.4-8.2)
[2021-02-25 12:29] LABS: ALCOHOL(ethanol),MEDICAL < 10 mg/dL
[2021-02-25 13:23] LABS: COLLECTION METHOD CLEAN CATCH
[2021-02-25 13:31] LABS: MUCOUS Present /lpf; PH 6 (5-8); SQUAMOUS EPITHELIAL 0-2 /hpf; URINE APPEARANCE Clear; URINE BACTERIA None Seen /hpf; URINE BILIRUBIN Negative (NEGATIVE); URINE BLOOD Negative (NEGATIVE); URINE CALCIUM OXALATE CRYSTAL Present /hpf; URINE COLOR Yellow; URINE GLUCOSE 1+ (NEGATIVE); URINE KETONE Negative (NEGATIVE); URINE LEUKOCYTE ESTERASE Negative (NEGATIVE); URINE NITRATE Negative (NEGATIVE); URINE PROTEIN(semi-quant) Negative (NEGATIVE); URINE RBC 0-2 /hpf; URINE UROBILINOGEN Negative (NEGATIVE)
[2021-02-25] MEDS ORDERED: OMNICEF 300MG300 MG PO (13:32)
[2021-02-25] MEDS ORDERED: ZITHROMAX Z PA250 MG PO (13:32)
[2021-02-25 14:05] VITALS: BP 116/78; PULSE 68
== END 2021-02-25 14:05 | disposition home or self-care (01) ==
LOC: COL.ER 10:49
PROVIDERS: Family Medicine
DX: J18.9 Pneumonia, unspecified organism (principal); I25.10 Atherosclerotic heart disease of native coronary artery without angina pectoris; E78.5 Hyperlipidemia, unspecified; I48.91 Unspecified atrial fibrillation; Z87.891 Personal history of nicotine dependence; Z79.82 Long term (current) use of aspirin; Z79.899 Other long term (current) drug therapy

== ENCOUNTER 2021-03-11 12:43 | Emergency (ER) | payer MEDICARE, MEDICAID ==
[~2021-03-11] VITALS: Ht 172.7 cm; Wt 122.7 kg
[~2021-03-11 12:43] MED LIST changes: +OMNICEF 300MG300 MG PO; +ZITHROMAX Z PA250 MG PO
[2021-03-11 12:54] VITALS: TEMP 98
[2021-03-11 13:19] LABS: BASO % 0.5 % (0.0-2.0); EOS # 0.2 (0.0-0.7); EOS % 2.7 % (0-4.0); GRAN # 5.6 (1.4-6.5); GRAN % 68.8 % (42.2-75.2); HEMATOCRIT 37.3 % (42.0-52.0); HEMOGLOBIN 11.3 g/dl (13.5-18.0); LYMPH # 1.7 (1.2-3.4); LYMPH % 21.2 % (20.0-51.0); MEAN CELL VOLUME 85 fl (80.0-100.0); MEAN CORPUSCULAR HEMOGLOBIN 26 pg (27.0-31.0); MEAN CORPUSCULAR HGB CONC 30 g/dl (33.0-37.0); MEAN PLATELET VOLUME 9.4 fl (7.4-10.4); MONO # 0.5 (0.1-0.6); MONO % 6.6 % (1.7-9.3); PLATELET COUNT 304 K/mm3 (130-400); RED BLOOD COUNT 4.37 M/mm3 (4.20-5.60); REDCELL DISTRIBUTION WIDTH-CV 17.3 % (11.5-14.5)
[2021-03-11 13:36] LABS: ALBUMIN 3.6 gm/dL (3.4-4.8); BILIRUBIN,TOTAL 0.4 mg/dL (0.2-1.2); CALCIUM 9.8 mg/dL (8.4-10.2); CREATININE, serum 0.74 mg/dL (0.72-1.25); POTASSIUM 3.7 mmol/L (3.5-4.5); TOTAL PROTEIN 7.5 gm/dL (6.2-8.1)
[2021-03-11 13:41] LABS: TROPONIN-I 0.016 ng/mL (0.00-0.033)
[2021-03-11 16:01] VITALS: BP 109/65; PULSE 73
== END 2021-03-11 16:05 | disposition home or self-care (01) ==
LOC: COL.ER 12:43
PROVIDERS: Emergency Medicine
DX: R07.89 Other chest pain (principal); I50.9 Heart failure, unspecified; I25.10 Atherosclerotic heart disease of native coronary artery without angina pectoris; I48.91 Unspecified atrial fibrillation; Z86.711 Personal history of pulmonary embolism; Z95.9 Presence of cardiac and vascular implant and graft, unspecified; Z87.891 Personal history of nicotine dependence; Z79.82 Long term (current) use of aspirin; Z79.899 Other long term (current) drug therapy; Z79.02 Long term (current) use of antithrombotics/antiplatelets; Z20.822 Contact with and (suspected) exposure to COVID-19
CPT/HCPCS: J1940; Q9967

== ENCOUNTER 2021-03-24 06:27 | Outpatient (CLI) | payer MEDICARE, MEDICAID ==
[~2021-03-24] VITALS: Ht 172.8 cm; Wt 76.0 kg
[2021-03-24] MEDS ORDERED: PLAVIX 75MG TAB75 MG PO (07:29)
[2021-03-24] MEDS ORDERED: FERROUSAL325 MG PO (07:30)
[2021-03-24] MEDS ORDERED: B-121000 MCG PO (07:30)
[2021-03-24] MEDS ORDERED: PRINIVIL10 MG PO (07:31)
[2021-03-24] MEDS ORDERED: ISOSORBIDE MON120 MG PO (07:31)
[2021-03-24] MEDS ORDERED: NITROSTAT0.4 MG/TAB SL (07:32)
[2021-03-24] MEDS ORDERED: TOPROL XL 50MG50 MG PO (07:32)
[2021-03-24] MEDS ORDERED: LIPITOR 80MG80 MG PO (07:33)
[2021-03-24] MEDS ORDERED: PROVENTIL0.09 MG/A1 IH (07:33)
[2021-03-24] MEDS ORDERED: DEMADEX100 MG (07:34)
[2021-03-24] MEDS ORDERED: 00186-0370-20 IH (07:34)
[2021-03-24] MEDS ORDERED: K-TAB10 PO (07:35)
[2021-03-24] MEDS ORDERED: DEMADEX100 MG PO (07:35)
[2021-03-24] MEDS ORDERED: RANEXA 500MG T500 MG PO (07:36)
[2021-03-24] MEDS ORDERED: NORVASC 10MG10 MG PO (07:37)
[2021-03-24] MEDS ORDERED: BETAPACE 120MG120 MG PO (07:37)
[2021-03-24] MEDS ORDERED: GLUCOPHAGE XR500 M1 PO (07:38)
[2021-03-24] MEDS ORDERED: ULTRAM 50MG TAB50 MG PO (07:38)
[2021-03-24 08:23] VITALS: BP 124/64; PULSE 69; TEMP 98.1
[2021-03-24 08:29] LABS: BASO % 0.3 % (0.0-2.0); EOS # 0.2 K/mm3 (0.0-0.7); EOS % 2.5 % (0-4.0); GRAN # 6.3 K/mm3 (1.4-6.5); GRAN % 71.5 % (42.2-75.2); HEMOGLOBIN 10.5 g/dl (13.5-18.0); LYMPH # 1.6 K/mm3 (1.2-3.4); LYMPH % 18.3 % (20.0-51.0); MEAN CELL VOLUME 82 fl (80.0-100.0); MEAN CORPUSCULAR HEMOGLOBIN 26 pg (27.0-31.0); MEAN CORPUSCULAR HGB CONC 32 g/dl (33.0-37.0); MEAN PLATELET VOLUME 9.5 fl (7.4-10.4); MONO # 0.6 K/mm3 (0.1-0.6); MONO % 7.2 % (1.7-9.3); PLATELET COUNT 276 K/mm3 (130-400); RED BLOOD COUNT 3.99 M/mm3 (4.20-5.60); REDCELL DISTRIBUTION WIDTH-CV 16.6 % (11.5-14.5)
[2021-03-24 08:32] LABS: HEMATOCRIT 32.8 % (42.0-52.0)
[2021-03-24 08:35] LABS: INR 1.2 (0.8-3.0); PROTHROMBIN TIME 12.8 SECONDS (9.7-12.8)
[2021-03-24 08:40] LABS: CALCIUM 8.9 mg/dL (8.4-10.2); CREATININE, serum 0.79 mg/dL (0.72-1.25); POTASSIUM 3.4 mmol/L (3.5-4.5)
[2021-03-24 09:20] VITALS: BP 115/69; PULSE 76
--- NOTE | 2021-03-24 09:20 | NUR ---
report recieved after KIMMIE, pt is awake, answeres questions, no c/o, sips on sprite, call light in reach
[2021-03-24 09:35] VITALS: BP 109/76; PULSE 73
[2021-03-24 09:50] VITALS: BP 118/74; PULSE 74
--- NOTE | 2021-03-24 09:50 | NUR ---
Dr Dean into see pt. Pt sits on side of bed, reviewed discharge inst. with pt on moderate sedation and next appt. with verbal understanding.
[2021-03-24 10:05] VITALS: BP 114/98; PULSE 76
--- NOTE | 2021-03-24 10:10 | NUR ---
iv d'cd intact, pt up and dressed, discharged via w/c to car with friend
== END 2021-03-24 10:10 | disposition home or self-care (01) ==
LOC: COL.RAD 06:27
PROVIDERS: Internal Medicine Cardiovascular Disease
DX: Z20.822 Contact with and (suspected) exposure to COVID-19 (principal)
CPT/HCPCS: J2704

== ENCOUNTER 2021-06-15 13:51 | Outpatient (RCR) | payer MEDICARE, MEDICAID ==
[~2021-06-15] VITALS: Ht 172.7 cm; Wt 128.0 kg
[~2021-06-15 13:51] MED LIST changes: +DEMADEX100 MG; +DEMADEX100 MG PO; +FERROUSAL325 MG PO; +GLUCOPHAGE XR500 M1 PO; +K-TAB10 PO; +PROVENTIL0.09 MG/A1 IH
[2021-06-15 14:24] VITALS: BP 107/52; PULSE 68; TEMP 97.8
[2021-06-15] MEDS ORDERED: LASIX 20MG TABL20 MG PO (15:54)
[2021-06-15] MEDS ORDERED: INCRUSE EL62.5 MCG/A IH (15:55)
[2021-06-15] MEDS ORDERED: ASPIRIN E.C. 8181 MG PO (15:56)
[2021-06-15] MEDS ORDERED: TRIAMCINOLONE A15 GM TP (15:57)
[2021-06-17] MEDS ORDERED: OMNICEF 300MG300 MG PO (03:18)
[2021-06-17] MEDS ORDERED: ZITHROMAX Z PA250 MG PO (03:18)
== END 2021-06-18 ==
LOC: EUO
DX: D50.9 Iron deficiency anemia, unspecified (principal)
CPT/HCPCS: J1756

== ENCOUNTER 2021-06-17 00:35 | Emergency (ER) | payer MEDICARE, MEDICAID ==
[~2021-06-17] VITALS: Ht 172.7 cm; Wt 127.7 kg
[~2021-06-17 00:35] MED LIST changes: +TRIAMCINOLONE A15 GM TP
[2021-06-17 00:38] VITALS: TEMP 98.1
[2021-06-17 01:03] LABS: BASO % 0.3 % (0.0-2.0); EOS # 0.3 K/mm3 (0.0-0.7); EOS % 2.5 % (0.0-4.0); GRAN # 8.4 K/mm3 (1.4-6.5); HEMOGLOBIN 10.4 g/dl (13.5-18.0); LYMPH # 1.9 K/mm3 (1.2-3.4); LYMPH % 16.6 % (20.0-51.0); MEAN CELL VOLUME 84 fl (80.0-100.0); MEAN CORPUSCULAR HEMOGLOBIN 27 pg (27-31); MEAN CORPUSCULAR HGB CONC 32 g/dl (33.0-37.0); MEAN PLATELET VOLUME 9.4 fl (7.4-10.4); MONO # 0.9 K/mm3 (0.1-0.6); MONO % 8.1 % (1.7-9.3); PLATELET COUNT 326 K/mm3 (130-400); RED BLOOD COUNT 3.93 M/mm3 (4.20-5.60); REDCELL DISTRIBUTION WIDTH-CV 15.7 % (11.5-14.5)
[2021-06-17 01:24] LABS: ALBUMIN 3.7 gm/dL (3.4-4.8); BILIRUBIN,TOTAL 0.6 mg/dL (0.2-1.2); C-REACTIVE PROTEIN 2.27 mg/dL (0.00-0.50); CALCIUM 9.4 mg/dL (8.4-10.2); CREATININE, serum 0.86 mg/dL (0.72-1.25); TOTAL PROTEIN 7.8 gm/dL (6.2-8.1)
[2021-06-17 01:31] LABS: TROPONIN-I 0.016 ng/mL (0.00-0.033)
[2021-06-17] MEDS ORDERED: ZITHROMAX Z PA250 MG PO (03:18)
[2021-06-17] MEDS ORDERED: OMNICEF 300MG300 MG PO (03:18)
[2021-06-17 05:02] VITALS: BP 107/54; PULSE 64
== END 2021-06-17 05:12 | disposition home or self-care (01) ==
LOC: COL.ER 00:35
PROVIDERS: Physician Assistant
DX: J18.1 Lobar pneumonia, unspecified organism (principal); E87.6 Hypokalemia; D72.829 Elevated white blood cell count, unspecified; I25.10 Atherosclerotic heart disease of native coronary artery without angina pectoris; I48.91 Unspecified atrial fibrillation; J44.9 Chronic obstructive pulmonary disease, unspecified; I50.9 Heart failure, unspecified; I25.2 Old myocardial infarction; Z20.822 Contact with and (suspected) exposure to COVID-19; Z95.9 Presence of cardiac and vascular implant and graft, unspecified; Z88.0 Allergy status to penicillin; Z79.02 Long term (current) use of antithrombotics/antiplatelets; Z79.899 Other long term (current) drug therapy; Z79.82 Long term (current) use of aspirin
CPT/HCPCS: J0696; J1885; J2270

== ENCOUNTER → 2021-06-30 | Outpatient (CLI) | payer MEDICARE, MEDICAID | LOC: COL.RAD 13:38 | DX: Z87.891 Personal history of nicotine dependence (principal); Z12.2 Encounter for screening for malignant neoplasm of respiratory organs ==

== ENCOUNTER 2022-07-15 08:00 | Outpatient (RCR) | payer MEDICARE, MEDICAID ==
[2022-07-07 10:53] VITALS: BP 128/59; PULSE 70; TEMP 98.1
[~2022-07-15] VITALS: Ht 172.7 cm; Wt 132.7 kg
[2022-07-15 08:08] VITALS: BP 135/68; PULSE 65; TEMP 97.6
[2022-07-21] MEDS ORDERED: SOAANZ40 MG PO (10:00)
[2022-07-21] MEDS ORDERED: PROAIR HFA0.09 MG/AC IH (10:01)
== END 2022-07-19 | disposition home or self-care (01) ==
LOC: EUO
DX: D50.9 Iron deficiency anemia, unspecified (principal)
CPT/HCPCS: J1756

== ENCOUNTER 2022-09-23 10:28 | Emergency (ER) | payer MEDICARE, MEDICAID ==
[~2022-09-23 10:28] MED LIST changes: +SOAANZ40 MG PO
--- NOTE | 2022-09-23 10:38 | NUR ---
Patient brought in via EMS code blue. SW obtained advanced directives via EMR. Patients DPOA-HC Dm Bond ([phone]) contacted and requested she come to the hospital.
[2022-09-23 10:57] LABS: MEAN CELL VOLUME 96 fl (80.0-100.0); MEAN CORPUSCULAR HGB CONC 27 g/dl (33.0-37.0); MEAN PLATELET VOLUME 11.3 fl (7.4-10.4); PLATELET COUNT 197 K/mm3 (130-400); RED BLOOD COUNT 3.44 M/mm3 (4.20-5.60); REDCELL DISTRIBUTION WIDTH-CV 16.5 % (11.5-14.5)
[2022-09-23 11:01] LABS: MEAN CORPUSCULAR HEMOGLOBIN 26 pg (27-31)
[2022-09-23 11:12] LABS: ALBUMIN 3.1 gm/dL (3.4-4.8); BILIRUBIN,TOTAL 0.9 mg/dL (0.2-1.2); CREATININE, serum 0.82 mg/dL (0.72-1.25); POTASSIUM 3.9 mmol/L (3.5-4.5); TOTAL PROTEIN 6.5 gm/dL (6.2-8.1)
[2022-09-23 11:14] LABS: ARTERIAL BLD GAS TCO2 CT 20.5; ARTERIAL BLOOD GAS BASE EXCESS -11.6 (-2-2); ARTERIAL BLOOD GAS HCO3 18.5 meq/L (22-26)
[2022-09-23 11:15] LABS: ARTERIAL BLOOD GAS PCO2 66.1 mmHg (35-45); ARTERIAL BLOOD GAS PO2 144.8 mmHg (80-100); ARTERIAL BLOOD GAS pH 7.06 (7.35-7.45)
[2022-09-23 11:17] LABS: TROPONIN-I 0.015 ng/mL (0.00-0.033)
[2022-09-23 11:19] LABS: EOSINOPHIL 2 % (0-4); LYMPHOCYTE 24 % (20.0-51.0); METAMYELOCYTE 1 % (0-0); NEUTROPHILS 68 % (42.0-75.2)
[2022-09-23 11:20] LABS: ANISOCYTOSIS 1+; BURR CELLS 1+; HYPOCHROMIA 3+; PLATELET ESTIMATE NORMAL (NORMAL)
[2022-09-23 11:21] LABS: SCHISTOCYTES 1+
--- NOTE | 2022-09-23 11:25 | NUR ---
PT PLACED ON MECHANICAL VENTILATOR. IN ITIAL SETTINGS.
[2022-09-23 12:11] VITALS: BP 90/50; PULSE 64
--- NOTE | 2022-09-23 12:21 | NUR ---
Urmila arrives to the department. Patients condition explained by MD. Suyapa Darnell present. At this time, Urmila would like to continue agressive measures. Storage Architect arrives and talks with Urmila about poc. All questions answered by
--- NOTE | 2022-09-23 13:47 | NUR ---
VENESSA PELAEZ; Artillery Officer called to Emergency Department for Venessa Pelaez. Gopal Wilson. Artillery Officer observed treatment and awaited patient's "significant other" who arrived within the hour. Artillery Officer stayed with Urmila Bond offering support, listening and offering prayer for both her and Gopal. Artillery Officer remained with Urmila until [facility] [employer] arrived and began to prepare patient for transport.
[2022-09-26 08:25] LABS: PATHOLOGY DIFF REVIEW OK
== END 2022-09-23 12:31 | disposition short-term general hospital (02) ==
LOC: COL.ER 10:28
PROVIDERS: Emergency Medicine
DX: I46.9 Cardiac arrest, cause unspecified (principal); I24.9 Acute ischemic heart disease, unspecified; I48.91 Unspecified atrial fibrillation; I10 Essential (primary) hypertension; E87.20 Acidosis, unspecified; Z95.5 Presence of coronary angioplasty implant and graft; Z20.822 Contact with and (suspected) exposure to COVID-19
CPT/HCPCS: J0171; J0282; J1644; J3010; J7060